=== PATIENT | female | born 1975 | race Two or more races ===

== ENCOUNTER 2017-09-16 10:28 | Emergency (ER) | payer OTHER, BC ==
[2017-09-16 10:48] VITALS: RESP 18
--- NOTE | 2017-09-16 11:09 | EDPHY ---
H & P Stated Complaint: Fell from sitting position on chair;both knees, R wrist, R shoulder hurts Time Seen by Provider: 09/16/17 10:56 HPI/ROS: CHIEF COMPLAINT: Fall HISTORY OF PRESENT ILLNESS: The patient is a 42-year-old female who tripped and fell. She is complaining of right back pain, right knee pain and right shoulder pain. She has a history of fibromyalgia and Latasha-Danlos. She is concerned that her leg feels unstable. She has a history of lumbar fusion and is worried that it was damaged. She does not have any weakness or numbness. No paresthesias. No bowel or bladder abnormalities. She denies syncope, chest pain or shortness of breath. She was able to ambulate here in the emergency department. REVIEW OF SYSTEMS: Constitutional: denies: chills, fever, recent illness, recent injury EENTM: denies: blurred vision, double vision, nose congestion Respiratory: denies: cough, shortness of breath Cardiac: denies: chest pain, irregular heart rate, lightheadedness, palpitations Gastrointestinal/Abdominal: denies: abdominal pain, diarrhea, nausea, vomiting, blood streaked stools Genitourinary: denies: dysuria, frequency, hematuria, pain Musculoskeletal see HPI Skin: denies: lesions, rash, jaundice, bruising Neurological: denies: headache, numbness, paresthesia, tingling, dizziness, weakness Hematologic/Lymphatic: denies: blood clots, easy bleeding, easy bruising Immunologic/allergic: denies: HIV/AIDS, transplant EXAM: GENERAL: Well-appearing, well-nourished and in no acute distress. HEAD: Atraumatic, normocephalic. EYES: Pupils equal round and reactive to light, extraocular movements intact, sclera anicteric, conjunctiva are normal. ENT: TMs normal, nares patent, oropharynx clear without exudates. Moist mucous membranes. NECK: Normal range of motion, supple without lymphadenopathy or JVD. LUNGS: Breath sounds clear to auscultation bilaterally and equal. No wheezes rales or rhonchi. HEART: Regular rate and rhythm without murmurs, rubs or gallops. ABDOMEN: Soft, nontender, normoactive bowel sounds. No guarding, no rebound. No masses appreciated. BACK: No CVA tenderness, no spinal tenderness, step-offs or deformities, surgical scar present EXTREMITIES: Normal range of motion, no pitting or edema. No clubbing or cyanosis. No laxity or deformities appreciated any knee or shoulder. NEUROLOGICAL: Cranial nerves II through XII grossly intact. Normal speech, normal gait. 5/5 strength, normal movement in all extremities, normal sensation PSYCH: Normal mood, normal affect. SKIN: Minor abrasions to both knees Source: Patient Exam Limitations: No limitations - Personal History LMP (Females 10-55): Post Menopausal Current Tetanus Diphtheria and Acellular Pertussis (TDAP): Yes Tetanus Vaccine Date: 2009 - Medical/Surgical History Hx Asthma: Yes Hx Chronic Respiratory Disease: No Hx Diabetes: No Hx Cardiac Disease: No Hx Renal Disease: No Hx Cirrhosis: No Hx Alcoholism: No Hx HIV/AIDS: No Hx Splenectomy or Spleen Trauma: No Other PMH: hypothyroid, fibromyalgia, asthma, Latasha-Danlos. PSH- lumbar spine , , L eye - Family History Significant Family History: No pertinent family hx - Social History Smoking Status: Former smoker Alcohol Use: None Drug Use: None Constitutional: Initial Vital Signs Temperature (C) 36.7 C 09/16/17 10:29 Heart Rate 85 09/16/17 10:29 Respiratory Rate 18 09/16/17 10:29 Blood Pressure 141/90 H 09/16/17 10:29 O2 Sat (%) 95 09/16/17 10:29 O2 Delivery Mode Room Air Allergies/Adverse Reactions: No Known Allergies Allergy (Verified 09/16/17 10:29) Home Medications: Medication Instructions Recorded "New Pain Pill" 09/16/17 Albuterol Hfa Anes Only [Proair 1 mdi 09/16/17 Hfa Icu (*)] LORazepam [Ativan (*)] 0.5 mg PO 09/16/17 Levothyroxine [Synthroid 100 mcg 100 mcg PO DAILY06 09/16/17 (*)] Topiramate [Topamax] 25 mg PO 09/16/17 metFORMIN HCL [Glucophage 500 mg 500 mg PO 09/16/17 (*)] Medical Decision Making - Diagnostics Imaging Results: Imaging Impressions Knee X-Ray 09/16/17 11:01 Impression: Negative for fracture. Lumbar Spine, 2 views History: Pain, post trauma Findings: Vertebral body heights are well-maintained with no fracture identified. There is a mild scoliotic curvature convex towards the right. Facet hypertrophy extends from L3-L4 to the L5-S1 level. There is a minimal anterolisthesis of L3 with respect to L4. A wire is positioned posteriorly connecting the spinous processes of L3 and L4. Mild multilevel disk space loss is noted. Impression: 1. Negative for fracture or other acute abnormality. 2. Mild degenerative changes, scoliosis and minimal spondylolisthesis are noted. 3 Views Right Shoulder. Clinical Indications: Pain following trauma. Findings: The humeral head is normally located in the glenoid fossa. No fracture is identified. The bone alignment is normal. Impression: Right shoulder negative for fracture. Results called and discussed with EVELYN HUTTON M.D. on 09/16/2017 at 12:51 Lumbar Spine X-Ray 09/16/17 11:01 Impression: Negative for fracture. Lumbar Spine, 2 views History: Pain, post trauma Findings: Vertebral body heights are well-maintained with no fracture identified. There is a mild scoliotic curvature convex towards the right. Facet hypertrophy extends from L3-L4 to the L5-S1 level. There is a minimal anterolisthesis of L3 with respect to L4. A wire is positioned posteriorly connecting the spinous processes of L3 and L4. Mild multilevel disk space loss is noted. Impression: 1. Negative for fracture or other acute abnormality. 2. Mild degenerative changes, scoliosis and minimal spondylolisthesis are noted. 3 Views Right Shoulder. Clinical Indications: Pain following trauma. Findings: The humeral head is normally located in the glenoid fossa. No fracture is identified. The bone alignment is normal. Impression: Right shoulder negative for fracture. Results called and discussed with EVELYN HUTTON M.D. on 09/16/2017 at 12:51 Shoulder X-Ray 09/16/17 11:01 Impression: Negative for fracture. Lumbar Spine, 2 views History: Pain, post trauma Findings: Vertebral body heights are well-maintained with no fracture identified. There is a mild scoliotic curvature convex towards the right. Facet hypertrophy extends from L3-L4 to the L5-S1 level. There is a minimal anterolisthesis of L3 with respect to L4. A wire is positioned posteriorly connecting the spinous processes of L3 and L4. Mild multilevel disk space loss is noted. Impression: 1. Negative for fracture or other acute abnormality. 2. Mild degenerative changes, scoliosis and minimal spondylolisthesis are noted. 3 Views Right Shoulder. Clinical Indications: Pain following trauma. Findings: The humeral head is normally located in the glenoid fossa. No fracture is identified. The bone alignment is normal. Impression: Right shoulder negative for fracture. Results called and discussed with EVELYN HUTTON M.D. on 09/16/2017 at 12:51 Imaging: Discussed imaging studies w/ yardage caller Radiologist ED Course/Re-evaluation: 12:55 p.m. we discussed the x-ray results which are reassuring. The patient is happy with this and is eager to go home. She is placed in a sling advised to use as needed. I will have her follow up with correctional program specialist for chronic lumbar pain. She is happy with this and declines prescription pain medication. She states ibuprofen has or has worked best for her. She was able to ambulate without difficulty out of the emergency department. Differential Diagnosis: Partial list of the Differential diagnosis considered include but were not limited to; a fall, contusion, fracture, dislocation and although unlikely based on the history and physical exam, I also considered vascular injury, nerve injury, head injury, syncope, arrhythmia. I discussed these differential diagnoses and the plan with the patient as well as the usual and expected course. The patient understands that the diagnosis is provisional and that in medicine we are not always correct and that further workup is often warranted. Usual and customary warnings were given. All of the patient's questions were answered. The patient was instructed to return to the emergency department should the symptoms at all worsen or return, otherwise to followup with the physician as we discussed. - Data Points Medications Given: Discontinued Medications Ibuprofen (Motrin) 600 mg PO EDNOW ONE Stop: 09/16/17 11:32 Last Admin: 09/16/17 11:35 Dose: 600 mg Departure - Departure Disposition: Home, Routine, Self-Care Clinical Impression: Shoulder pain, right Qualifiers: Chronicity: acute Qualified Code(s): M25.511 - Pain in right shoulder Low back pain Qualifiers: Chronicity: acute Back pain laterality: right Sciatica presence: without sciatica Qualified Code(s): M54.5 - Low back pain Fall Qualifiers: Encounter type: initial encounter Qualified Code(s): W19.XXXA - Unspecified fall, initial encounter Condition: Fair Instructions: Back Pain (ED), Shoulder Pain (ED) Referrals: Xochilt Dash MD [Primary Care Provider] - As per Instructions Mar Corona MD [Medical Doctor] - As per Instructions
[2017-09-16] MEDS ORDERED: IBUPROFEN 600 MG TAB PO ONE (11:31)
[2017-09-16 13:09] VITALS: BP 125/86; PULSE 71; TEMP 98.4; O2SAT 97
== END 2017-09-16 13:09 | disposition home or self-care (01) ==
DX: S49.91XA Unspecified injury of right shoulder and upper arm, initial encounter (principal); J45.909 Unspecified asthma, uncomplicated; S39.92XA Unspecified injury of lower back, initial encounter; Z87.891 Personal history of nicotine dependence; W01.0XXA Fall on same level from slipping, tripping and stumbling without subsequent striking against object, initial encounter
CPT/HCPCS: A4565

== ENCOUNTER → 2017-11-21 | Outpatient (CLI) | payer OTHER, BC | LOC: CIMAGING 12:00 | PROVIDERS: ATTEND Physical Medicine & Rehabilitation | DX: M50.321 Other cervical disc degeneration at C4-C5 level (principal); M50.322 Other cervical disc degeneration at C5-C6 level; M25.519 Pain in unspecified shoulder | CPT/HCPCS: 72052-PO ==

== ENCOUNTER → 2018-09-16 | Outpatient (CLI) | payer BC, OTHER ==
[~2018-09-16] MED LIST: GADOBUTROL 10 ML VIAL IVP ONE
== END ==
LOC: FIMAGING 15:17
PROVIDERS: ATTEND Psychiatry & Neurology Neurology
DX: G43.909 Migraine, unspecified, not intractable, without status migrainosus (principal); R53.1 Weakness
CPT/HCPCS: A9585